=== PATIENT | male | born 1975 ===

== ENCOUNTER → 2020-02-08 | Outpatient (CLI) | payer BC ==
--- NOTE | 2020-02-11 07:28 | PE ---
EXAMINATION TYPE: PET CT fusion skull to thigh DATE OF EXAM: 02/08/2020 COMPARISON: Outside CT thorax dated 01/28/2020 HISTORY: Solitary pulmonary nodule (right lower lobe), initial examination. No prior biopsy. No or ch emotherapy nor radiation. TECHNIQUE: Following the intravenous administration of 12.02 mCi of F-18 FDG, whole body images are performed from the skull base to the midthigh. Images are reviewed on the computer in the coronal, a xial, and sagittal planes. Reconstructed rotating images are created on independent workstation and reviewed on the computer. A localization and attenuation correction CT is performed in conjunction with the PET scan. SCAN: Initial treatment strategy FINDINGS: Mediastinal background: 1.47 Abdominal background: 2.27 SKULL BASE AND NECK: No suspicious hypermetabolic activity. Incidentally noted multifocal uptake in a typical distribution of bronchiectasis is seen. CHEST, MEDIASTINUM, AND HILAR REGION: The previously seen right lower lobe approximately 1.0 x 0.8 cm pleural-based pulmonary nodule on series 3 image 100 is hypometabolic with a maximum SUV of 0.96. Th ere is also hypometabolic multifocal pleural thickening with less than 5 mm areas adjacent to the juan carlos g nodule such as on series 3 image 104. These have a maximum SUV of 0.93. ABDOMEN AND PELVIS: No suspicious hypermetabolic uptake. OSSEOUS STRUCTURES: Sclerotic focus of the right iliac bone measuring 1.0 cm has a maximum SUV of 1.1 , below both mediastinal and abdominal background. Just superior to this there is a smaller periphera lly sclerotic lesion that is also hypometabolic. Probable geode of the right femoral neck is hypometa bolic. This measures approximately 1.[address]: Minimal dependent subsegmental atelectasis of the lungs. Minimal bilateral symmetric gyral and probable gynecomastia. Unremarkable unenhanced appearance of the liver, spleen, gallbladder, adre nal glands, and pancreas. Small hiatal hernia. No hydronephrosis or nephrolithiasis of either kidney. 3 mm too small to accurately characterize left cortical lesion image 146. Appendix is well aerated a nd within normal limits. Small fat filled periumbilical hernia is incidentally seen. No dilated large or small bowel. IMPRESSION: 1. Solitary hypometabolic right lower lobe pulmonary nodule without suspicious mediastinal adenopathy . This is therefore favored to be benign however precautionary follow-up with CT thorax in 6-12 month s is recommended to ensure no interval growth as slow-growing carcinomas can be hypometabolic. 2. Right iliac sclerotic lesion is indeterminate although hypometabolic and therefore likely relates to a benign bone island.
== END | disposition home or self-care (01) ==
LOC: RADPETMAIN 13:10
PROVIDERS: ATTEND Internal Medicine Critical Care Medicine
DX: R91.1 Solitary pulmonary nodule (principal); M89.8X8 Other specified disorders of bone, other site
CPT/HCPCS: 78815; A9552